=== PATIENT | male | born 1965 | race Caucasian/White ===

== ENCOUNTER → 2017-03-11 | Outpatient (CLI) | payer BC ==
[~2017-03-11] VITALS: Ht 190.5 cm; Wt 140.6 kg
[~2017-03-11] MED LIST: ASPI32ECTA PO; CARV25TA PO; DILT300C PO; FENO48TA2 PO; FERR325T3 PO; LASI20TA PO; LIDOCAINE 2% INJ 100 MG/5 ML SDV (FOR ANES.) As Ordered ONE; LOSA100T36 PO; LOSA50TA20 PO; NS 1,000 ML IV ONE; PANT40TA2 PO; PROPOFOL 200 MG/20 ML VIAL As Ordered ONE; VITA100072 PO; VITA2000 PO; ZYLO300T4 PO; fentaNYL 100 MCG/2 ML INJECTION (J3010) As Ordered ONE
--- NOTE | 2017-03-11 15:04 | ROOR ---
Patient Name: Faheem Angeles Procedure Date: 03/11/2017 2:47 PM Date of : 1965 Age: 51 Room: [facility] Gender: Male Note Status: Finalized Procedure: Upper GI endoscopy Indications: Iron deficiency anemia, Heartburn Providers: All Melara MD Referring MD: Kika Elaine Requesting Provider: Medicines: Monitored Anesthesia Care Complications: No immediate complications. Procedure: Pre-Anesthesia Assessment: - The heart rate, respiratory rate, oxygen saturations, blood pressure, adequacy of pulmonary ventilation, and response to care were monitored throughout the procedure. The Endoscope was introduced through the mouth, and advanced to the second part of duodenum. The upper GI endoscopy was accomplished without difficulty. The patient tolerated the procedure well. Findings: The Z-line was regular and was found 40 cm from the incisors. No other significant abnormalities were identified in a careful examination of the stomach. The exam of the duodenum was otherwise normal. Impression: - Z-line regular, 40 cm from the incisors. - No specimens collected. - The examination was otherwise normal. Recommendation: - Patient has a contact number available for emergencies. The signs and symptoms of potential delayed complications were discussed with the patient. Return to normal activities tomorrow. Written discharge instructions were provided to the patient. - High fiber diet. - Discharge patient to home. - Continue present medications. - Follow an antireflux regimen. - Return to referring physician. - The findings and recommendations were discussed with the patient's family. All Melara MD All Melara MD 03/11/2017 3:03:40 PM This report has been signed electronically. Number of Addenda: 0 Note Initiated On: 03/11/2017 2:47 PM Estimated Blood Loss: Estimated blood loss: none.
[2017-03-11 15:20] VITALS: BP 159/101
== END | disposition home or self-care (01) ==
LOC: M OPP 13:02
PROVIDERS: ATTEND Internal Medicine Gastroenterology
DX: D50.9 Iron deficiency anemia, unspecified (principal); R12 Heartburn; I10 Essential (primary) hypertension; I77.810 Thoracic aortic ectasia; I28.1 Aneurysm of pulmonary artery; E78.5 Hyperlipidemia, unspecified; G47.30 Sleep apnea, unspecified; K21.9 Gastro-esophageal reflux disease without esophagitis; Z86.79 Personal history of other diseases of the circulatory system; Z79.82 Long term (current) use of aspirin; Z79.899 Other long term (current) drug therapy
CPT/HCPCS: 43235; 99156; J3010

== ENCOUNTER → 2022-06-01 | Outpatient (CLI) | payer OTHER ==
[~2022-06-01] MED LIST changes: +ASPI-255 PO; -ASPI32ECTA PO; -DILT300C PO; +DILT300C21 PO; -FENO48TA2 PO; +FENO48TA8 PO; -LASI20TA PO; +LASI20TA3 PO; -LIDOCAINE 2% INJ 100 MG/5 ML SDV (FOR ANES.) As Ordered ONE; -LOSA100T36 PO; +LOSA100T45 PO; -LOSA50TA20 PO; +LOSA50TA28 PO; -NS 1,000 ML IV ONE; -PANT40TA2 PO; +PANT40TA29 PO; -PROPOFOL 200 MG/20 ML VIAL As Ordered ONE; +VITA100018 PO; -VITA100072 PO; -ZYLO300T4 PO; +ZYLO300T6 PO; -fentaNYL 100 MCG/2 ML INJECTION (J3010) As Ordered ONE
== END ==
LOC: M RADPRO 13:41
PROVIDERS: ATTEND Nurse Practitioner Adult Health
DX: J98.6 Disorders of diaphragm (principal)

== ENCOUNTER 2023-05-20 14:28 | Emergency (ER) | payer OTHER ==
[~2023-05-20] VITALS: Ht 190.5 cm; Wt 150.3 kg
[~2023-05-20 14:28] MED LIST changes: -LOSA100T45 PO; +LOSA100T46 PO
[2023-05-20 14:29] VITALS: TEMP 98.3
[2023-05-20] MEDS ORDERED: XARE20TA PO (14:57)
[2023-05-20] MEDS ORDERED: DILT60TA PO (14:57)
[2023-05-20] MEDS ORDERED: CARV6.25 PO (14:57)
[2023-05-20] MEDS ORDERED: ALLO10TA PO (14:57)
[2023-05-20] MEDS ORDERED: LOSA25TA13 PO (14:57)
[2023-05-20] MEDS ORDERED: SOTA80TA32 PO (14:57)
[2023-05-20 18:22] LABS: HEMATOCRIT 38.3 % (42.0-52.0); HEMOGLOBIN 12.8 g/dl (13.5-17.5); MEAN CORPUSCULAR HEMOGLOBIN 31.2 pg (27.0-33.0); MEAN CORPUSCULAR HGB CONC 33.4 g/dl (32.0-36.5); MEAN CORPUSCULAR VOLUME 93.4 fl (80.0-96.0); PLATELET COUNT, AUTOMATED 311 10^3/uL (150-450); WHITE BLOOD COUNT 9.4 10^3/uL (4.0-10.0)
[2023-05-20 18:33] LABS: INR 1.67
[2023-05-20 18:35] LABS: PARTIAL THROMBOPLASTIN TIME 49.3 SECONDS (24.8-34.2)
[2023-05-20 18:43] LABS: ALBUMIN 3.1 G/DL (3.2-5.2); ALKALINE PHOSPHATASE 102 U/L (46-116); ALT/SGPT 40 U/L (7.0-40); AST/SGOT 31 U/L (<34); BILIRUBIN,DIRECT 0.2 MG/DL (<0.4); BILIRUBIN,TOTAL 0.5 MG/DL (0.3-1.2); BLOOD UREA NITROGEN 15 MG/DL (9-23); CALCIUM LEVEL 9.8 MG/DL (8.5-10.1); CARBON DIOXIDE LEVEL 29 MMOL/L (20-31); CHLORIDE LEVEL 99 MMOL/L (98-107); CK-MB VALUE MASS < 1.0 NG/ML (<3.6); CPK CREATINE PHOSPHOKINASE 86 U/L (46-171); CREATININE FOR GFR 0.91 MG/DL (0.70-1.30); GLOMERULAR FILTRATION RATE > 60.0 (>56); GLUCOSE, FASTING 102 MG/DL (60-100); MB/CK RELATIVE INDEX 1.16 (< OR =4); POTASSIUM SERUM 3.5 MMOL/L (3.5-5.1); SODIUM LEVEL 136 MMOL/L (136-145); TOTAL PROTEIN 6.5 G/DL (5.7-8.2)
[2023-05-20 20:23] LABS: CK-MB VALUE MASS < 1.0 NG/ML (<3.6)
[2023-05-20 20:31] LABS: CPK CREATINE PHOSPHOKINASE 84 U/L (46-171); MB/CK RELATIVE INDEX 1.19 (< OR =4)
[2023-05-20 20:43] VITALS: O2SAT 94
[2023-05-20 20:45] VITALS: BP 106/58
== END 2023-05-20 21:04 | disposition home or self-care (01) ==
LOC: M ED 14:28
DX: R79.9 Abnormal finding of blood chemistry, unspecified (principal); I10 Essential (primary) hypertension; J45.909 Unspecified asthma, uncomplicated; Z95.0 Presence of cardiac pacemaker; Z86.79 Personal history of other diseases of the circulatory system; Z79.811 Long term (current) use of aromatase inhibitors; Z79.899 Other long term (current) drug therapy